=== PATIENT | female | born 1935 | race Caucasian/White ===

== ENCOUNTER 2019-06-02 10:11 | Observation (INO) ==
[2019-06-02 13:56] LABS: Basophils % 0.1 %; Eosinophils # 0.1 K/mcL (0.0-0.6); Eosinophils % 0.5 %; Hemoglobin 8.9 g/dL (11.5-15.4); Immature Granulocytes % 0.7 % (0-4); Lymphocytes # 1.1 K/mcL (0.6-4.6); Mean Corpuscular HGB Conc 30.7 g/dL (31.6-35.5); Mean Corpuscular Hemoglobin 26.3 pg (28.0-33.3); Mean Corpuscular Volume 85.8 fL (83.0-100.0); Mean Platelet Volume 9.9 fL (9.4-12.4); Monocytes # 0.7 K/mcL (0.0-1.3); Monocytes % 3.3 %; Neutrophils # 19.1 K/mcL (1.6-8.9); Platelet Count 259 K/mcL (140-400); Red Blood Count 3.38 M/mcL (3.82-4.97); Red Cell Distribution Width 13.2 % (11.5-14.5); Segmented Neutrophils % 90.4 %; White Blood Count 21.2 K/mcL (4.3-11.1)
[2019-06-02] MEDS ORDERED: Naloxone 0.4 MG/ML INJ IVP PRN (14:19)
[2019-06-02 14:21] LABS: BUN/Creatinine Ratio 27 (6-26); Blood Urea Nitrogen 26 mg/dL (8-23); Calcium 9.4 mg/dL (8.6-10.3); Carbon Dioxide 24 mEq/L (23-29); Chloride 101 mEq/L (98-107); Glucose 133 mg/dL (70-105); Osmolality,Calculated 289 (280-300); Potassium 4.1 mEq/L (3.5-5.1); Sodium 136 mEq/L (136-145); eGFR For African Americans > 60 (> 60); eGFR For Non-African Americans 56 (> 60)
[2019-06-02] MEDS ORDERED: 0.9 % Sodium Chloride 1,000 ML IVC SCH (14:30)
[2019-06-02] MEDS: *HR* Heparin 5,000 UNIT/ML VIAL SQ SCH (20:33)
[2019-06-02] MEDS: Acetaminophen 325 MG TABLET PO PRN (23:43)
[2019-06-03] MEDS: *HR* Heparin 5,000 UNIT/ML VIAL SQ SCH ×3 (05:49→22:03)
[2019-06-03] MEDS: Acetaminophen 325 MG TABLET PO PRN ×2 (05:49→14:01)
[2019-06-03] MEDS: tiZANidine 4 MG TABLET PO SCH (09:54)
[2019-06-03] MEDS: amLODIPine 5 MG TABLET PO SCH (09:54)
[2019-06-03] MEDS: Propranolol LA (24 HR) 80 MG CAP.SA.24H PO SCH (09:54)
[2019-06-03 12:19] LABS: Basophils % 0.2 %; Eosinophils # 0.3 K/mcL (0.0-0.6); Eosinophils % 2.6 %; Hematocrit 26.3 % (35.3-44.9); Hemoglobin 8.3 g/dL (11.5-15.4); Immature Granulocytes % 0.5 % (0-4); Lymphocytes # 0.8 K/mcL (0.6-4.6); Lymphocytes % 6.1 %; Mean Corpuscular HGB Conc 31.6 g/dL (31.6-35.5); Mean Corpuscular Hemoglobin 26.9 pg (28.0-33.3); Mean Corpuscular Volume 85.4 fL (83.0-100.0); Mean Platelet Volume 10.1 fL (9.4-12.4); Monocytes # 0.8 K/mcL (0.0-1.3); Monocytes % 5.9 %; Platelet Count 231 K/mcL (140-400); Red Blood Count 3.08 M/mcL (3.82-4.97); Red Cell Distribution Width 13.2 % (11.5-14.5); Segmented Neutrophils % 84.7 %
[2019-06-03 12:28] LABS: BUN/Creatinine Ratio 20 (6-26); Blood Urea Nitrogen 17 mg/dL (8-23); Calcium 9.1 mg/dL (8.6-10.3); Carbon Dioxide 22 mEq/L (23-29); Chloride 105 mEq/L (98-107); Glucose 134 mg/dL (70-105); Osmolality,Calculated 286 (280-300); Potassium 3.6 mEq/L (3.5-5.1); Sodium 136 mEq/L (136-145); eGFR For African Americans > 60 (> 60); eGFR For Non-African Americans > 60 (> 60)
[2019-06-03 12:32] LABS: % Iron Saturation 17 % (15-50); Iron 67 mcg/dL (50-170); Transferrin 289 mg/dL (203-362)
[2019-06-03 12:35] LABS: Estimated Average Glucose 131 mg/dl
[2019-06-03 12:50] LABS: Ferritin 18 ng/mL (10-120)
[2019-06-03 12:55] LABS: Folate 18.4 ng/mL (3.0-16.0)
[2019-06-03] MEDS: *HR* OxyCODONE Immed Rel 5 MG TABLET PO PRN (22:03)
[2019-06-03] MEDS ORDERED: tiZANidine 4 MG TABLET PO ONE (22:16)
[2019-06-04] MEDS: Acetaminophen 325 MG TABLET PO PRN ×2 (02:45→17:42)
[2019-06-04] MEDS: *HR* Heparin 5,000 UNIT/ML VIAL SQ SCH ×3 (06:18→21:24)
[2019-06-04] MEDS: *HR* OxyCODONE Immed Rel 5 MG TABLET PO PRN ×2 (06:18→18:37)
[2019-06-04] MEDS: Propranolol LA (24 HR) 80 MG CAP.SA.24H PO SCH (08:56)
[2019-06-04] MEDS: tiZANidine 4 MG TABLET PO SCH (08:56)
[2019-06-04] MEDS: amLODIPine 5 MG TABLET PO SCH (08:56)
[2019-06-05] MEDS: *HR* Heparin 5,000 UNIT/ML VIAL SQ SCH ×3 (06:06→20:22)
[2019-06-05] MEDS: *HR* OxyCODONE Immed Rel 5 MG TABLET PO PRN ×2 (06:11→17:54)
[2019-06-05] MEDS: amLODIPine 5 MG TABLET PO SCH (08:37)
[2019-06-05] MEDS: tiZANidine 4 MG TABLET PO SCH (08:37)
[2019-06-05] MEDS: Propranolol LA (24 HR) 80 MG CAP.SA.24H PO SCH (08:37)
[2019-06-05] MEDS ORDERED: 0.9 % Sodium Chloride 500 ML ONE ×2 (10:52→12:50)
[2019-06-05] MEDS ORDERED: 0.9 % Sodium Chloride 500 ML IVC ONE (11:00)
[2019-06-05] MEDS: Acetaminophen 325 MG TABLET PO PRN (20:22)
[2019-06-05] MEDS ORDERED: tiZANidine 4 MG TABLET PO PRN (20:26)
[2019-06-06 04:07] LABS: Basophils # 0.1 K/mcL (0.0-0.2); Basophils % 0.5 %; Eosinophils # 0.3 K/mcL (0.0-0.6); Eosinophils % 2.4 %; Hemoglobin 8.6 g/dL (11.5-15.4); Immature Granulocytes % 0.3 % (0-4); Lymphocytes # 1.5 K/mcL (0.6-4.6); Lymphocytes % 12.5 %; Mean Corpuscular HGB Conc 31.9 g/dL (31.6-35.5); Mean Corpuscular Hemoglobin 26.6 pg (28.0-33.3); Mean Corpuscular Volume 83.6 fL (83.0-100.0); Mean Platelet Volume 9.7 fL (9.4-12.4); Monocytes # 1.1 K/mcL (0.0-1.3); Monocytes % 8.7 %; Neutrophils # 9.2 K/mcL (1.6-8.9); Platelet Count 241 K/mcL (140-400); Red Blood Count 3.23 M/mcL (3.82-4.97); Red Cell Distribution Width 13.9 % (11.5-14.5); Segmented Neutrophils % 75.6 %; White Blood Count 12.1 K/mcL (4.3-11.1)
[2019-06-06 04:26] LABS: BUN/Creatinine Ratio 34 (6-26); Blood Urea Nitrogen 30 mg/dL (8-23); Calcium 8.8 mg/dL (8.6-10.3); Carbon Dioxide 24 mEq/L (23-29); Chloride 108 mEq/L (98-107); Glucose 112 mg/dL (70-105); Osmolality,Calculated 299 (280-300); Sodium 141 mEq/L (136-145); eGFR For African Americans > 60 (> 60); eGFR For Non-African Americans > 60 (> 60)
[2019-06-06] MEDS: *HR* OxyCODONE Immed Rel 5 MG TABLET PO PRN (06:03)
[2019-06-06] MEDS: *HR* Heparin 5,000 UNIT/ML VIAL SQ SCH ×2 (06:04→12:42)
[2019-06-06] MEDS: amLODIPine 5 MG TABLET PO SCH (09:34)
[2019-06-06 10:56] VITALS: BP 148/53
[2019-06-06] MEDS: Acetaminophen 325 MG TABLET PO PRN (13:01)
== END 2019-06-06 17:29 ==
LOC: 3NENU 10:11 → EMEROOARM 10:11 → SUATTDRO 14:16 → 3NENU 14:38 → 2ANU 06-05 12:40
PROVIDERS: ADMIT Internal Medicine; ATTEND Internal Medicine